=== PATIENT | male | born 1975 | race African-American/Black ===

== ENCOUNTER 2017-11-01 20:00 | Outpatient (CLI) | payer BC | END 2017-11-01 20:01 | disposition home or self-care (01) | LOC: SLEEPLAB 20:00 | PROVIDERS: ATTEND Family Medicine | DX: G47.33 Obstructive sleep apnea (adult) (pediatric) (principal); G47.00 Insomnia, unspecified; E66.9 Obesity, unspecified; F32.9 Major depressive disorder, single episode, unspecified; R06.83 Snoring; R53.83 Other fatigue | CPT/HCPCS: 95806 ==

== ENCOUNTER 2019-01-16 09:13 | Day surgery (SDC) | payer BC ==
[2019-01-15 12:28] VITALS: BMI 36.3
--- NOTE | 2019-01-16 12:14 | OP ---
DATE OF PROCEDURE: 01/16/2019 OPERATIVE PROCEDURE: Colonoscopy. PREOPERATIVE DIAGNOSIS: A 43-year-old male comes for a colonoscopy for colon cancer screening. POSTOPERATIVE DIAGNOSIS: 1. Normal colonoscopy; however, the exam was limited because of retained stool in the colon. 2. Hemorrhoids. DESCRIPTION OF PROCEDURE: The patient was placed on his left lateral position and was given sedation by Anesthesia Department. A rectal exam was done before the scope was advanced into the rectum. No lesions felt on rectal exam. A [employer] video colonoscope was introduced into the rectum and advanced all the way to the cecum. Although, the cecum was reached without difficulty, he had fairly large amount of retained stool intervening the colon. Although, water was irrigated and washed out, I could not completely clear the colon out. In the ileocecal area, cecum, ascending colon, no pathology seen. In the hepatic flexure, transverse colon, splenic flexure, descending colon, sigmoid colon, no pathology seen, however, the exam was somewhat limited because of retained stool. Retroflexion of scope in the rectum showed hemorrhoids. DISCHARGE PLANNING: This is a 43-year-old male came for a colonoscopy for colon cancer screening. The colonoscopy showed no pathology. The exam was somewhat limited because of retained stool. DISCHARGE RECOMMENDATIONS: 1. The patient was advised to call me if he develops abdominal pain, hematochezia. 2. In the absence of any other symptoms, come back to me in 2 weeks. Job ID: [id number]
[2019-01-16] MEDS ORDERED: Lidocaine 1% PF 5 ML VIAL ONE (14:28)
[2019-01-16] MEDS ORDERED: PROPOFOL 200 MG/20 ML VIAL ONE (14:28)
== END 2019-01-16 11:55 | disposition home or self-care (01) ==
LOC: SDC 09:13
PROVIDERS: ATTEND Internal Medicine
PROC: 0DJD8ZZ Inspection of Lower Intestinal Tract, Via Natural or Artificial Opening Endoscopic (ICD-10-PCS; principal; 2019-01-16)
DX: Z12.11 Encounter for screening for malignant neoplasm of colon (principal); K64.9 Unspecified hemorrhoids; Z79.899 Other long term (current) drug therapy
CPT/HCPCS: J2001; J2704

== ENCOUNTER 2022-12-10 15:11 | Outpatient (CLI) | payer BC ==
[2022-12-10 16:47] LABS: #Eosinphils 0.2 10x3/uL (0.0-0.5); #Monocytes 0.7 10x3/uL (0.0-1.1); #Neutrophils 4.2 10x3/uL (1.5-8.4); %Basophils 0.4 % (0.0-2.0); %Eosinophils 2.4 % (0.0-6.0); %Lymphocytes 32.4 % (18.0-47.0); %Monocytes 8.8 % (0.0-10.0); %Neutrophils 55.7 % (40.0-75.0); Hemoglobin 13.7 g/dL (13.5-17.5); Mean Corpuscular HGB CONC 33.7 g/dL (32.0-36.0); Mean Corpuscular Hemoglobin 27.6 pg (27.0-33.0); Mean Corpuscular Volume 81.9 fl (81.2-95.1); Mean Platelet Volume 10.2 fl (7.4-10.4); Platelet Count 179 10x3/uL (150-450); RBC Distribution Width 13.7 % (11.5-14.5); Red Blood Cell (RBC) Count 4.96 10x6/uL (4.32-5.72); White Blood Cell (WBC) Count 7.5 10x3/uL (3.5-10.5)
[2022-12-10 17:18] LABS: Anion Gap 12 mmol/L (10-20); BUN (Urea Nitrogen) 11 mg/dL (8.9-20.6); Calc. Creatinine Clearance 0 mL/min (70-130); Calcium 10.1 mg/dL (7.8-10.44); Carbon Dioxide 28 mmol/L (22-29); Chloride 105 mmol/L (98-107); Estimated GFR 81; Glucose 88 mg/dL (70-105); Potassium 4.1 mmol/L (3.5-5.1); Sodium 141 mmol/L (136-145)
== END 2022-12-10 15:12 | disposition home or self-care (01) ==
LOC: LABBT 15:11
PROVIDERS: ATTEND Surgery
DX: Z01.818 Encounter for other preprocedural examination (principal)
CPT/HCPCS: 80048; 85025; 93005; 93010

== ENCOUNTER 2022-12-17 09:58 | Day surgery (SDC) | payer BC ==
[2022-12-16 11:34] VITALS: BMI 43.5
[2022-12-17] MEDS ORDERED: fentaNYL PF 100 MCG/2 ML SYRINGE ONE (10:52)
[2022-12-17] MEDS ORDERED: CEFAZOLIN 2 GM VIAL ONE (11:55)
[2022-12-17] MEDS ORDERED: Sodium Chloride 0.9% 100 ML ONE (11:55)
[2022-12-17] MEDS ORDERED: Dexamethasone 20 MG/5 ML VIAL ONE (12:15)
[2022-12-17] MEDS ORDERED: Ondansetron PF 4 MG/2 ML Vial ONE (12:15)
[2022-12-17] MEDS ORDERED: Glycopyrrolate 0.2 MG/ML 5 ML SYRINGE ONE (12:15)
[2022-12-17] MEDS ORDERED: PHENYLEPHRINE-NS 100 MCG/ML 10 ML SYRINGE ONE (12:15)
[2022-12-17] MEDS ORDERED: PROPOFOL 200 MG/20 ML VIAL ONE (12:15)
[2022-12-17] MEDS ORDERED: Lidocaine 1% PF 5 ML VIAL ONE (12:15)
[2022-12-17] MEDS ORDERED: Fentanyl 100 MCG/2 ML VIAL ONE (13:16)
[2022-12-17] MEDS ORDERED: HYDROcodone/Acetaminophen 5/325 mg Tablet ONE (14:28)
== END 2022-12-17 14:50 | disposition home or self-care (01) ==
LOC: SDC 09:58
PROVIDERS: ATTEND Surgery
PROC: 0JBL0ZZ Excision of Right Upper Leg Subcutaneous Tissue and Fascia, Open Approach (ICD-10-PCS; principal; 2022-12-17)
DX: D17.23 Benign lipomatous neoplasm of skin and subcutaneous tissue of right leg (principal); R73.03 Prediabetes; E78.5 Hyperlipidemia, unspecified; G47.33 Obstructive sleep apnea (adult) (pediatric); Z79.899 Other long term (current) drug therapy
CPT/HCPCS: 88304; J1100; J2405; J2704; J3010; J3490